=== PATIENT | male | born 1985 | race Caucasian/White ===

== ENCOUNTER 2019-01-30 15:28 | Emergency (ER) | payer OTHER ==
--- NOTE | 2019-01-30 15:34 | ED Physician Documentation ---
PD HPI DYSPNEA - Stated complaint Stated Complaint: SOA/LT ARM NUMBNESS - History obtained from History obtained from: Patient - History of Present Illness Timing - onset: Today Timing - onset during: Sleep Timing - duration: Hours (3.5) Timing - details: Abrupt onset Pain level max: 6 Pain level now: 2 Associated symptoms: Chest pain / discomfort, Palpitations, Anxiety. No: Fever, Cough, Hemoptysis, Wheezing, Bilateral edema, Unilateral edema Similar symptoms before: Has not had sx before Recently seen: Not recently seen - Additional information Additional information: Is a 33-year-old man who presents with his with complaints that he woke up at noon today with chest pain and left arm numbness breathing very shallow and feeling dizzy. He described the pain as "sharp" in the left upper pectoral region. He says he did not do anything strenuous yesterday he went to his classes which are night classes and he did not get to bed till around midnight. He took 800 mg of ibuprofen this morning without any relief. The pain was a 6 out of 10 is now down to a 2 out of 10. He is felt dizzy but has not passed out. He describes the numbness in the left arm as a tingling sensation is seems to be worse if he moves his neck to the left or to the right. Soon as he started with the symptoms he became extremely nervous about the fact that sounds like a heart attack symptoms that he is familiar with with training in some medical classes. 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 He feels a little bit like his heart is racing right now. Denies any injury to his neck. He is not a smoker, occasionally drinks alcohol. Family history Father has diabetes but both mother and father alive with no history of heart disease. An aunt had pulmonary hypertension his grandmother has diabetes. Review of Systems Constitutional: denies: Fever, Fatigue Eyes: reports: Other (He has some photosensitivity due to radial keratotomy about 6 months ago) Nose: denies: Congestion Throat: denies: Sore throat Cardiac: reports: Chest pain / pressure, Palpitations. denies: Pedal edema Respiratory: reports: Dyspnea. denies: Cough GI: denies: Nausea, Vomiting, Diarrhea : denies: Dysuria, Frequency Skin: denies: Rash Musculoskeletal: denies: Neck pain, Extremity pain Neurologic: reports: Other (Paresthesias to the left arm). denies: Generalized weakness Endocrine: reports: Other (No history of diabetes) PD PAST MEDICAL HISTORY - Present Medications Home Medications: Ambulatory Orders Medication Instructions Recorded Confirmed No Known Home Medications 01/30/19 01/30/19 - Allergies Allergies/Adverse Reactions: Allergies Allergy/AdvReac Type Severity Reaction Status Date / Time No Known Drug Allergies Allergy Verified 01/30/19 15:41 PD ED PE NORMAL - Vitals Vital signs reviewed: Yes - General General: Alert and oriented X 3, No acute distress, Well developed/nourished, Other (Patient appears very anxious. He is mildly diaphoretic and he is actually visibly shaking.) - HEENT HEENT: Atraumatic, PERRL, EOMI, Moist mucous membranes, Pharynx benign - Neck Neck: Supple, no meningeal sign, No adenopathy, No JVD, No bruit - Cardiac Cardiac: RRR, No murmur - Respiratory Respiratory: No respiratory distress, Clear bilaterally - Abdomen Abdomen: Normal bowel sounds, Soft, Non tender - Derm Derm: Normal color, No rash, Other (He is mildly diaphoretic) - Extremities Extremities: No edema, Other (Complained of pain in the left anterior chest and anterior shoulder with muscle testing in the left arm.) - Neuro Neuro: Alert and oriented X 3, chemic mangler 2-12 intact, No motor deficit, No sensory deficit, Normal speech, Other (5 out of 5 director motion picture strength in the upper extremities bilaterally 5 out of 5 biceps. Sensation is intact to light touch through the upper extremities bilaterally.) Results - Vitals Vitals: Oxygen O2 Source Room air - EKG (time done) 1531 Rate: Rate (enter#) Rhythm: NSR Intervals: Normal MN Ischemia: Non specific changes (There is noted MN depression in lead II. Minimal ST elevation in lead I, V2 V3. There is MN depression in lead V4. These changes are of unclear significance.) Compare to prior EKG: Old EKG unavailable Computer interpretation: Disagree with computer (The computer read this is atrial fibrillation but there are clear P waves.) - Labs Labs: Laboratory Tests 01/30/19 01/30/19 01/30/19 16:20 16:20 16:20 WBC 7.1 RBC 5.62 Hgb 17.3 Hct 50.7 MCV 90.1 MCH 30.8 MCHC 34.2 RDW 13.1 Plt Count 307 MPV 8.1 Neut # (Auto) 4.3 Lymph # (Auto) 2.2 [place] # (Auto) 0.4 Eos # (Auto) 0.1 Baso # (Auto) 0.0 Absolute Nucleated RBC 0.00 Nucleated RBC % 0.0 Sodium 138 Potassium 4.1 Chloride 102 Carbon Dioxide 25 Anion Gap 11.0 BUN 13 Creatinine 0.9 Estimated GFR (MDRD) 97 Glucose 90 Calcium 9.9 Total Bilirubin 0.8 AST 21 ALT 45 Alkaline Phosphatase 92 Troponin I < 0.04 Total Protein 8.2 Albumin 4.6 Globulin 3.6 Albumin/Globulin Ratio 1.3 Lipase 45 01/30/19 19:20 WBC RBC Hgb Hct MCV MCH MCHC RDW Plt Count MPV Neut # (Auto) Lymph # (Auto) [place] # (Auto) Eos # (Auto) Baso # (Auto) Absolute Nucleated RBC Nucleated RBC % Sodium Potassium Chloride Carbon Dioxide Anion Gap BUN Creatinine Estimated GFR (MDRD) Glucose Calcium Total Bilirubin AST ALT Alkaline Phosphatase Troponin I < 0.04 Total Protein Albumin Globulin Albumin/Globulin Ratio Lipase PD MEDICAL DECISION MAKING - ED course Complexity details: re-evaluated patient, d/w patient, d/w family ED course: EKG does not have acute changes. Chest x-ray is negative. He had 2 negative troponins. Patient's results were discussed with him and he was reassured[place] Departure - Departure Disposition: 01 Home, Self Care Clinical Impression: Atypical chest pain Condition: Good Instructions: ED Chest Pain Atypical Unkn Cause Follow-Up: MARIBELL Orr [Provider Group] Comments[place] symptoms persist for further evaluation. Return if the pain returns and is associated with dizziness, nausea or vomiting or other problems arise. Discharge Date/Time: 01/30/19 20:07
[2019-01-30] MEDS ORDERED: ASPIRIN CHEW 81 MG TABLET PO STA (15:51)
[2019-01-30] MEDS ORDERED: LORazepam 0.5 MG TABLET PO STA (15:52)
[2019-01-30 16:28] LABS: BASOPHILS % (AUTO) 0.4 %; EOSINOPHILS # (AUTO) 0.1 10^3/uL (0.0-0.7); EOSINOPHILS % (AUTO) 1.9 %; HGB - HEMOGLOBIN 17.3 g/dL (14.0-18.0); LYMPHOCYTES # (AUTO) 2.2 10^3/uL (1.5-3.5); LYMPHOCYTES % (AUTO) 30.7 %; MEAN CORPUSCULAR HEMOGLOBIN 30.8 pg (27.0-31.0); MEAN CORPUSCULAR HGB CONC 34.2 g/dL (32.0-36.0); MEAN CORPUSCULAR VOLUME 90.1 fL (80.0-94.0); MEAN PLATELET VOLUME 8.1 fL (7.4-11.4); MONOCYTES # (AUTO) 0.4 10^3/uL (0.0-1.0); MONOCYTES % (AUTO) 6.2 %; NEUTROPHILS # (AUTO) 4.3 10^3/uL (1.5-6.6); NEUTROPHILS % (AUTO) 60.8 %; PLT - PLATELET COUNT 307 10^3/uL (130-450); RED BLOOD COUNT 5.62 10^6/uL (4.70-6.10); RED CELL DISTRIBUTION WIDTH 13.1 % (12.0-15.0); WHITE BLOOD COUNT 7.1 x10^3/uL (4.8-10.8)
--- NOTE | 2019-01-30 16:36 | XRAY Report ---
Reason: chest pain Procedure Date: 01/30/2019 Accession Number: [id number] / [id number] Procedure: XR - Chest 1 View X-Ray CPT Code: 63496 FULL RESULT: EXAM: CHEST RADIOGRAPHY EXAM DATE: 01/30/2019 04:13 PM. CLINICAL HISTORY: Chest pain. Chills. COMPARISON: None. TECHNIQUE: 1 view. FINDINGS: Lungs/Pleura: No focal opacities evident. No pleural effusion. No pneumothorax. Mediastinum: Within exam limitations, the cardiomediastinal contour is normal. Other: No bony abnormality identified. IMPRESSION: Normal single view chest. RADIA
[2019-01-30 16:46] LABS: ALBUMIN 4.6 g/dL (3.2-5.5); ALBUMIN/GLOBULIN RATIO 1.3 (1.0-2.2); BILIRUBIN,TOTAL 0.8 mg/dL (0.2-1.0); CALCIUM 9.9 mg/dL (8.5-10.3); CREATININE 0.9 mg/dL (0.6-1.2); TOTAL PROTEIN 8.2 g/dL (6.7-8.2)
[2019-01-30 20:07] VITALS: BP 106/82
== END 2019-01-30 20:07 | disposition home or self-care (01) ==
LOC: ED 15:28
DX: R07.89 Other chest pain (principal)
CPT/HCPCS: 36415; 71045; 80053; 83690; 84484; 85025; 93005; 99283; 99284; A9270

== ENCOUNTER 2020-05-23 01:34 | Emergency (ER) | payer OTHER ==
--- NOTE | 2020-05-23 01:42 | ED Physician Documentation ---
PD HPI CHEST PAIN - Stated complaint Stated Complaint: CP - History obtained from History obtained from: Patient - History of Present Illness Timing - onset: How many days ago (1 (episodic for past 24 hours)) Timing - details: Intermittant Pain level now: 5 Quality: Pain Location: Substernal Radiation: Other (chest pressure with LUE numbness) Improved by: Nothing Worsened by: Other (no exacerbating factors) Similar symptoms before: No diagnosis (similar symptoms January 2019 (T+R from this ED and followed up with PMD, no diagnosis)) Recently seen: Not recently seen - Additional information Additional information: c/o episodic chest pressure over past 24 hours with LUE numbness, dyspnea, and mid/lower back pain. No inciting, exacerbating, or ameliorating factors Review of Systems Constitutional: denies: Fever, Chills, Sweats Cardiac: reports: Chest pain / pressure. denies: Palpitations, Pedal edema, Ca lf pain Respiratory: reports: Dyspnea (only when having chest pressure). denies: Cough, Wheezing GI: reports: Reviewed and negative : denies: Dysuria, Frequency, Hematuria Musculoskeletal: reports: Back pain PD PAST MEDICAL HISTORY - Past Medical History Past Medical History: No - Past Surgical History Past Surgical History: No - Present Medications Home Medications: Ambulatory Orders Medication Instructions Recorded Confirmed No Known Home Medications 01/30/19 05/23/20 - Allergies Allergies/Adverse Reactions: Allergies Allergy/AdvReac Type Severity Reaction Status Date / Time No Known Drug Allergies Allergy Verified 05/23/20 01:46 - Living Situation Living Arrangement: reports: At home - Social History Does the pt smoke?: No Smoking Status: Never smoker Does the pt drink ETOH?: Yes Does the pt have substance abuse?: No - Immunizations Immunizations are current?: Yes - POLST Patient has POLST: No PD ED PE NORMAL - Vitals Vital signs reviewed: Yes - General General: Alert and oriented X 3, No acute distress, Well developed/nourished - HEENT HEENT: Moist mucous membranes - Neck Neck: Supple, no meningeal sign - Cardiac Cardiac: RRR, No murmur, No gallop, No rub - Respiratory Respiratory: No respiratory distress, Clear bilaterally - Abdomen Abdomen: Soft, Non tender - Back Back: No CVA TTP - Extremities Extremities: No edema Results - Vitals Vitals: Vital Signs - 24 hr 05/23/20 05/23/20 05/23/20 01:42 01:46 02:55 Temperature 36.3 C L 36.3 C L 36.8 C Heart Rate 61 61 61 Respiratory 16 16 16 Rate Blood Pressure 130/91 H 130/91 H 117/75 O2 Saturation 100 100 98 Oxygen O2 Source Room air - EKG (time done) No standard instances Rate: Rate (enter#) (60) Rhythm: NSR [place]: Normal Intervals: Normal IN QRS: Normal Ischemia: Normal ST segments - Labs Labs: Laboratory Tests 05/23/20 05/23/20 05/23/20 01:45 01:45 01:45 WBC 9.1 RBC 5.03 Hgb 15.8 Hct 45.7 MCV 90.9 MCH 31.4 H MCHC 34.6 RDW 12.6 Plt Count 319 MPV 9.8 Neut # (Auto) 5.1 Lymph # (Auto) 3.1 [place] # (Auto) 0.6 Eos # (Auto) 0.2 Baso # (Auto) 0.0 Absolute Nucleated RBC 0.00 Nucleated RBC % 0.0 Sodium 137 Potassium 3.6 Chloride 103 Carbon Dioxide 26 Anion Gap 8.0 BUN 13 Creatinine 1.0 Estimated GFR (MDRD) 85 L Glucose 96 Calcium 9.5 Total Bilirubin 0.9 AST 23 ALT 30 Alkaline Phosphatase 93 Troponin I High Sens 2.9 Total Protein 7.7 Albumin 4.8 Globulin 2.9 Albumin/Globulin Ratio 1.7 Lipase 50 - Rads (name of study) chest xray Radiology: Prelim report reviewed, See rad report PD MEDICAL DECISION MAKING - ED course Complexity details: reviewed results, re-evaluated patient, considered differential, d/w patient Departure - Departure Disposition: 01 Home, Self Care Clinical Impression: Chest pain Qualifiers: Chest pain type: unspecified Qualified Code(s): R07.9 - Chest pain, unspecified Condition: Good Instructions: ED Chest Pain Atypical Unkn Cause Follow-Up: ALBINO TRUJILLO MD [Primary Care Provider] - Discharge Date/Time: 05/23/20 02:55
[2020-05-23 01:53] LABS: BASOPHILS % (AUTO) 0.3 %; EOSINOPHILS # (AUTO) 0.2 10^3/uL (0.0-0.7); HGB - HEMOGLOBIN 15.8 g/dL (14.0-18.0); LYMPHOCYTES # (AUTO) 3.1 10^3/uL (1.5-3.5); LYMPHOCYTES % (AUTO) 34.5 %; MEAN CORPUSCULAR HEMOGLOBIN 31.4 pg (27.0-31.0); MEAN CORPUSCULAR HGB CONC 34.6 g/dL (32.0-36.0); MEAN CORPUSCULAR VOLUME 90.9 fL (80.0-94.0); MEAN PLATELET VOLUME 9.8 fL (7.4-11.4); MONOCYTES # (AUTO) 0.6 10^3/uL (0.0-1.0); MONOCYTES % (AUTO) 6.8 %; NEUTROPHILS # (AUTO) 5.1 10^3/uL (1.5-6.6); NEUTROPHILS % (AUTO) 56.1 %; PLT - PLATELET COUNT 319 10^3/uL (130-450); RED BLOOD COUNT 5.03 10^6/uL (4.70-6.10); RED CELL DISTRIBUTION WIDTH 12.6 % (12.0-15.0); WHITE BLOOD COUNT 9.1 x10^3/uL (4.8-10.8)
[2020-05-23 02:06] LABS: ALBUMIN 4.8 g/dL (3.2-5.5); ALBUMIN/GLOBULIN RATIO 1.7 (1.0-2.2); BILIRUBIN,TOTAL 0.9 mg/dL (0.2-1.0); CALCIUM 9.5 mg/dL (8.5-10.3); TOTAL PROTEIN 7.7 g/dL (6.7-8.2)
[2020-05-23 02:56] VITALS: BP 117/75
--- NOTE | 2020-05-23 08:26 | XRAY Report ---
PROCEDURE: Chest 2 View X-Ray INDICATIONS: chest pain TECHNIQUE: 2 view(s) of the chest. COMPARISON: 01/30/2019. FINDINGS: Surgical changes and devices: None. Lungs and pleura: No pleural effusions or pneumothorax. Lungs are clear. Mediastinum: Mediastinal contours are normal. Heart size is normal. Bones and chest wall: No suspicious bony abnormalities. Soft tissues appear unremarkable. IMPRESSION: No acute cardiopulmonary disease process. Reviewed by: Obdulia Bell MD, PhD on 05/23/2020 8:25 AM PDT Approved by: Obdulia Bell MD, PhD on 05/23/2020 8:25 AM PDT Station ID: [id number]
== END 2020-05-23 02:55 | disposition home or self-care (01) ==
LOC: ED 01:34
DX: R07.89 Other chest pain (principal)
CPT/HCPCS: 36415; 71046; 80053; 83690; 84484; 85025; 93005; 99284

== ENCOUNTER 2021-07-26 05:03 | Emergency (ER) | payer OTHER ==
[2021-07-26] MEDS: SODIUM CHLORIDE 0.9% 1,000 ML IV STA (05:22)
--- NOTE | 2021-07-26 05:27 | ED Physician Documentation ---
PD HPI ABD PAIN - Stated complaint Stated Complaint: LOWER QUAD PX/N/V - Chief complaint Chief Complaint: Abd Pain - History obtained from History obtained from: Patient - History of Present Illness Timing - onset: How many hours ago (1) Timing - duration: Hours (1) Timing - details: Abrupt onset Quality: Aching, Stabbing, Pain Location: RUQ Radiation: Right flank Improved by: No: Eating, Laying still Worsened by: No: Eating, Moving, Breathing Associated symptoms: Nausea, Vomiting (once with the pain). No: Fever, Diarrhea, Constipation, Dysuria, Chest pain Similar symptoms before: Diagnosis (similar character and location of pain about 5 years ago due to kidney stone that did spontaneously pass without surgical procedures.) Recently seen: Not recently seen Review of Systems Constitutional: denies: Fever, Chills Nose: denies: Rhinorrhea / runny nose, Congestion Throat: denies: Sore throat Respiratory: denies: Cough GI: reports: Abdominal Pain, Nausea. denies: Constipation, Diarrhea : reports: Hematuria (mild after onset of the pain). denies: Dysuria, Frequency, Discharge Neurologic: denies: Generalized weakness, Near syncope PD PAST MEDICAL HISTORY - Past Medical History Cardiovascular: None Respiratory: None Endocrine/Autoimmune: None : Kidney stones (once about 5 years ago) - Past Surgical History Past Surgical History: No - Present Medications Home Medications: Ambulatory Orders Medication Instructions Recorded Confirmed No Known Home Medications 01/30/19 07/26/21 - Allergies Allergies/Adverse Reactions: Allergies Allergy/AdvReac Type Severity Reaction Status Date / Time No Known Drug Allergies Allergy Verified 05/23/20 01:46 - Social History Does the pt smoke?: No Smoking Status: Never smoker Does the pt drink ETOH?: Yes Does the pt have substance abuse?: No - Immunizations Immunizations are current?: Yes - POLST Patient has POLST: No PD ED PE NORMAL - Vitals Vital signs reviewed: Yes - General General: Alert and oriented X 3, Well developed/nourished, Other (appears in significant pain) - Neck Neck: Supple, no meningeal sign - Cardiac Cardiac: RRR, No murmur - Respiratory Respiratory: Clear bilaterally - Abdomen Abdomen: Normal bowel sounds, Soft, Non distended, No organomegaly, Other (palpation does not worsen the pain) - Derm Derm: Normal color, Warm and dry - Neuro Neuro: Alert and oriented X 3, No motor deficit, Normal speech Results - Vitals Vitals: Vital Signs - 24 hr 07/26/21 07/26/21 07/26/21 05:07 05:50 06:15 Temperature 36.5 C Heart Rate 67 64 58 L Respiratory 18 16 16 Rate Blood Pressure 126/69 117/79 118/75 O2 Saturation 98 100 100 Oxygen O2 Source Room air - Labs Labs: Laboratory Tests 07/26/21 07/26/21 07/26/21 05:20 05:20 06:45 WBC 5.5 RBC 4.76 Hgb 14.9 Hct 43.6 MCV 91.6 MCH 31.3 H MCHC 34.2 RDW 12.5 Plt Count 287 MPV 9.5 Neut # (Auto) 3.2 Lymph # (Auto) 1.8 [place] # (Auto) 0.4 Eos # (Auto) 0.1 Baso # (Auto) 0.0 Absolute Nucleated RBC 0.00 Nucleated RBC % 0.0 Sodium 137 Potassium 3.9 Chloride 105 Carbon Dioxide 23 Anion Gap 9.0 BUN 15 Creatinine 1.0 Estimated GFR (MDRD) 84 L Glucose 105 H Calcium 9.2 Total Bilirubin 0.8 AST 20 ALT 33 Alkaline Phosphatase 66 Total Protein 7.1 Albumin 3.9 Globulin 3.2 Albumin/Globulin Ratio 1.2 Lipase 41 Urine Color YELLOW Urine Clarity CLEAR Urine pH 7.0 Ur Specific [place] 1.020 Urine Protein NEGATIVE Urine Glucose (UA) NEGATIVE Urine Ketones NEGATIVE Urine Occult Blood LARGE H Urine Nitrite NEGATIVE Urine Bilirubin NEGATIVE Urine Urobilinogen 0.2 (NORMAL) Ur Leukocyte Esterase NEGATIVE Urine RBC TNTC H Urine WBC 0-3 Ur Squamous Epith Cells RARE Squamous Urine Bacteria Rare Urine Mucus Few Strands Ur Microscopic Review INDICATED Urine Culture Comments NOT INDICATED - Rads (name of study) KUB CT Radiology: Prelim report reviewed (mild hydroureter and perinephric stranding right. 3 mm stone in the bladder.), See rad report PD MEDICAL DECISION MAKING - ED course Complexity details: reviewed results, re-evaluated patient (feeling considerably improved after IV meds. ), considered differential (seems likely kidney stone. Prior episode 5 years ago. Pain is largely in flank without any lower abd pain, so stone likely still upper ureter. Can get CT to better evaluate after pain meds. ), d/w patient Departure - Departure Disposition: 01 Home, Self Care Clinical Impression: Right sided abdominal pain, Ureterolithiasis Condition: Stable Record reviewed to determine appropriate education?: Yes Instructions: ED Stone Renal Passed Comments: Does appear that your kidney stone is passed and is visible now in the bladder. They can be some "after shock" pains of spasm in the ureter and passing of some blood that can persist for a day or so. Tylenol ibuprofen and stay well- hydrated as needed. I would not anticipate needing stronger medications at this point but Tylenol or ibuprofen combination should do. Follow-up or return if not completely resolved over the next 2 to 3 days. Your urine does not show signs of infection. The radiology report does not see any other abnormalities.
[2021-07-26] MEDS: ONDANSETRON 4 MG/2 ML VIAL IVP STA (05:39)
[2021-07-26] MEDS: KETOROLAC 30 MG/ML VIAL IVP STA (05:40)
[2021-07-26 05:42] LABS: BASOPHILS % (AUTO) 0.6 %; EOSINOPHILS # (AUTO) 0.1 10^3/uL (0.0-0.7); EOSINOPHILS % (AUTO) 2.2 %; HCT - HEMATOCRIT 43.6 % (42.0-52.0); HGB - HEMOGLOBIN 14.9 g/dL (14.0-18.0); LYMPHOCYTES # (AUTO) 1.8 10^3/uL (1.5-3.5); LYMPHOCYTES % (AUTO) 32.7 %; MEAN CORPUSCULAR HEMOGLOBIN 31.3 pg (27.0-31.0); MEAN CORPUSCULAR HGB CONC 34.2 g/dL (32.0-36.0); MEAN CORPUSCULAR VOLUME 91.6 fL (80.0-94.0); MEAN PLATELET VOLUME 9.5 fL (7.4-11.4); MONOCYTES # (AUTO) 0.4 10^3/uL (0.0-1.0); MONOCYTES % (AUTO) 6.4 %; NEUTROPHILS # (AUTO) 3.2 10^3/uL (1.5-6.6); NEUTROPHILS % (AUTO) 57.9 %; PLT - PLATELET COUNT 287 10^3/uL (130-450); RED BLOOD COUNT 4.76 10^6/uL (4.70-6.10); RED CELL DISTRIBUTION WIDTH 12.5 % (12.0-15.0); WHITE BLOOD COUNT 5.5 x10^3/uL (4.8-10.8)
[2021-07-26] MEDS: HYDROmorphone 1 MG/ML CARPUJECT IVP STA (05:42)
[2021-07-26 06:01] LABS: ALBUMIN 3.9 g/dL (3.2-5.5); ALBUMIN/GLOBULIN RATIO 1.2 (1.0-2.2); BILIRUBIN,TOTAL 0.8 mg/dL (0.2-1.0); CALCIUM 9.2 mg/dL (8.5-10.3); POTASSIUM 3.9 mmol/L (3.5-5.0); TOTAL PROTEIN 7.1 g/dL (6.7-8.2)
[2021-07-26] MEDS ORDERED: LIDOCAINE-MPF 2% 5 ML VIAL ONE ×2 (06:08→06:17)
[2021-07-26] MEDS: LIDOCAINE-MPF 2% 6 ML in SODIUM CHLORIDE 0.9% 50 ML IV STA (06:13)
[2021-07-26 06:55] LABS: BILIRUBIN,URINE NEGATIVE (NEGATIVE); GLUCOSE, URINE (UA) NEGATIVE (NEGATIVE); KETONES,URINE (UA) NEGATIVE (NEGATIVE); LEUKOCYTE ESTERASE, URINE NEGATIVE (NEGATIVE); NITRITE,URINE NEGATIVE (NEGATIVE); OCCULT BLOOD,URINE LARGE (NEGATIVE); PROTEIN,URINE NEGATIVE (NEGATIVE); UROBILINOGEN,URINE 0.2 (NORMAL) E.U./dL (NORMAL)
[2021-07-26 07:11] LABS: BACTERIA,URINE Rare /HPF (None Seen); CLARITY,URINE CLEAR (CLEAR); MUCUS,URINE Few Strands; RBC,URINE TNTC /HPF (0-5); SQUAMOUS EPITHELIAL CELL,UR RARE Squamous (<= Few); WBC,URINE 0-3 /HPF (0-3)
[2021-07-26 08:03] VITALS: BP 105/75
--- NOTE | 2021-07-26 09:25 | CT Report ---
PROCEDURE: Abdomen/Pelvis WO INDICATIONS: right flank to abd pain, likely stone TECHNIQUE: Noncontrast 5 mm thick sections acquired from the diaphragms to the symphysis. 5 mm coronal and sagi ttal reformats were then performed. For radiation dose reduction, the following was used: automated exposure control, adjustment of mA and/or kV according to patient size. COMPARISON: None. FINDINGS: Image quality: Excellent. ABDOMEN: Lung bases: Lung bases are clear. Heart size is normal. Solid organs: Liver and spleen are normal in size. Gallbladder wall does not appear thickened. P ancreas is normal in contours. No adrenal nodules. Kidneys are normal in size, without hydronephros is or nephrolithiasis. Peritoneum and bowel: Unenhanced bowel loops demonstrate normal wall thickness and caliber. No free fluid or air. A normal appendix is incidentally noted. Nodes and vessels: No retroperitoneal or mesenteric adenopathy by size criteria. Aorta and inferior vena cava are normal in caliber. Miscellaneous: No ventral hernias. PELVIS: Genitourinary: Bladder wall thickness is normal. There is a 3 mm nonobstructing stone seen layering dependently within the urinary bladder, as on series 3 image 131. Miscellaneous: No inguinal hernias or adenopathy. Bones: No suspicious bony lesions. No acute vertebral body compression fractures. There is a remot e L2 anterior wedge deformity, with approximately 30% loss of height anteriorly. IMPRESSION: There is a 3 mm stone seen layering dependently within the bladder. Given the history, p lease consider a recently passed stone. Negative for additional stones or obstructive uropathy. Normal appendix. Incidental note is made of: Remote L2 anterior wedge deformity Note: No significant discrepancy from the preliminary report. Reviewed by: Modesto Hurd MD on 07/26/2021 8:24 AM [facility] Approved by: Modesto Hurd MD on 07/26/2021 8:24 AM [facility] Station ID: [id number]
== END 2021-07-26 08:26 | disposition home or self-care (01) ==
LOC: ED 05:03
DX: N20.1 Calculus of ureter (principal); Z87.442 Personal history of urinary calculi
CPT/HCPCS: 36415; 74176; 80053; 81001; 83690; 85025; 96361; 96374; 96375; 99282; 99284; J1170; J7040; 81003; 87086

== ENCOUNTER 2021-11-13 02:13 | Emergency (ER) | payer OTHER ==
[2021-11-13 03:04] LABS: BASOPHILS # (AUTO) 0.1 10^3/uL (0.0-0.1); BASOPHILS % (AUTO) 0.8 %; EOSINOPHILS # (AUTO) 0.2 10^3/uL (0.0-0.7); EOSINOPHILS % (AUTO) 2.9 %; HCT - HEMATOCRIT 42.9 % (42.0-52.0); HGB - HEMOGLOBIN 14.7 g/dL (14.0-18.0); LYMPHOCYTES # (AUTO) 2.9 10^3/uL (1.5-3.5); LYMPHOCYTES % (AUTO) 43.8 %; MEAN CORPUSCULAR HEMOGLOBIN 30.9 pg (27.0-31.0); MEAN CORPUSCULAR HGB CONC 34.3 g/dL (32.0-36.0); MEAN CORPUSCULAR VOLUME 90.1 fL (80.0-94.0); MEAN PLATELET VOLUME 9.5 fL (7.4-11.4); MONOCYTES # (AUTO) 0.6 10^3/uL (0.0-1.0); MONOCYTES % (AUTO) 9.1 %; NEUTROPHILS # (AUTO) 2.8 10^3/uL (1.5-6.6); NEUTROPHILS % (AUTO) 43.2 %; PLT - PLATELET COUNT 295 10^3/uL (130-450); RED BLOOD COUNT 4.76 10^6/uL (4.70-6.10); WHITE BLOOD COUNT 6.5 x10^3/uL (4.8-10.8)
[2021-11-13 03:18] LABS: ALBUMIN 4.1 g/dL (3.2-5.5); ALBUMIN/GLOBULIN RATIO 1.6 (1.0-2.2); BILIRUBIN,TOTAL 0.5 mg/dL (0.2-1.0); CALCIUM 9.3 mg/dL (8.5-10.3); POTASSIUM 3.8 mmol/L (3.5-5.0); TOTAL PROTEIN 6.6 g/dL (6.7-8.2)
--- NOTE | 2021-11-13 04:24 | ED Physician Documentation ---
PD HPI CHEST PAIN - Stated complaint Stated Complaint: CHEST PX, L ARM PX - Chief complaint Chief Complaint: Cardiac - History obtained from History obtained from: Patient - Additional information Additional information: Patient presenting for evaluation of left-sided chest pain that started at 2 AM. He describes it as a tightness.[place] associated numbness in his left arm. He reports that his symptoms have been on and off since then. There is nothing that makes them better or worse. He does have a history of similar episode a few years ago at which time he was evaluated in the emergency department. He has no known coronary artery disease. Denies history of hypertension, dyslipidemia,DM, family history of early cardiac disease. At this time he is currently pain-free. He had associated nausea. He denies any recent activity that would have Triggered this pain.Patient reports that initially it felt like the pain radiated to throughout his whole body but currently denies any abdominal or back pain. Review of Systems Ten Systems: 10 systems reviewed and negative Constitutional: denies: Fever Nose: denies: Congestion Cardiac: reports: Chest pain / pressure Respiratory: denies: Dyspnea, Cough GI: reports: Nausea. denies: Abdominal Pain, Vomiting : denies: Dysuria Skin: denies: Rash Musculoskeletal: denies: Back pain Neurologic: denies: Generalized weakness, Headache PD PAST MEDICAL HISTORY - Past Medical History Past Medical History: Yes Cardiovascular: None Respiratory: None Neuro: None Endocrine/Autoimmune: None GI: None : Kidney stones HEENT: None Psych: None Musculoskeletal: None Derm: None - Past Surgical History Past Surgical History: No - Present Medications Home Medications: Ambulatory Orders Medication Instructions Recorded Confirmed No Known Home Medications 01/30/19 11/13/21 - Allergies Allergies/Adverse Reactions: Allergies Allergy/AdvReac Type Severity Reaction Status Date / Time No Known Drug Allergies Allergy Verified 11/13/21 02:28 - Social History Does the pt smoke?: No Smoking Status: Never smoker Does the pt drink ETOH?: Yes Does the pt have substance abuse?: No - Immunizations Immunizations are current?: Yes - POLST Patient has POLST: No PD ED PE NORMAL - General General: Alert and oriented X 3, No acute distress, Well developed/nourished - HEENT HEENT: Atraumatic, PERRL, EOMI, Moist mucous membranes - Neck Neck: Supple, no meningeal sign - Cardiac Cardiac: RRR, No murmur, No gallop, Strong equal pulses - Respiratory Respiratory: No respiratory distress, Clear bilaterally - Abdomen Abdomen: Normal bowel sounds, Soft, Non tender, Non distended - Back Back: No CVA TTP - Derm Derm: Normal color, Warm and dry - Extremities Extremities: No deformity, No edema, No calf tenderness / cord - Neuro Neuro: Alert and oriented X 3, 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, No motor deficit, No sensory deficit, Normal speech - Psych Psych: Normal mood, Normal affect Results - Vitals Vitals: Vital Signs - 24 hr 11/13/21 11/13/21 11/13/21 02:24 02:35 02:36 Temperature 35.9 C L Heart Rate 63 58 L 59 L Respiratory 17 16 20 Rate Blood Pressure 123/74 124/90 H 124/90 H O2 Saturation 98 98 96 11/13/21 11/13/21 11/13/21 03:06 03:40 05:03 Temperature Heart Rate 59 L 57 L 61 Respiratory 17 14 16 Rate Blood Pressure 115/77 120/84 H O2 Saturation 97 98 99 11/13/21 05:44 Temperature Heart Rate Respiratory 16 Rate Blood Pressure O2 Saturation Oxygen O2 Source Room air - EKG (time done) 0228 Rate: Rate (enter#) Rhythm: Sinus bradycardia [place]: Normal Ischemia: No: ST elevation c/w ischemia, T wave inversion Computer interpretation: Agree with computer - Labs Labs: Laboratory Tests 11/13/21 11/13/21 11/13/21 03:00 03:00 03:00 WBC 6.5 RBC 4.76 Hgb 14.7 Hct 42.9 MCV 90.1 MCH 30.9 MCHC 34.3 RDW 13.0 Plt Count 295 MPV 9.5 Neut # (Auto) 2.8 Lymph # (Auto) 2.9 [place] # (Auto) 0.6 Eos # (Auto) 0.2 Baso # (Auto) 0.1 Absolute Nucleated RBC 0.00 Nucleated RBC % 0.0 Sodium 135 Potassium 3.8 Chloride 100 L Carbon Dioxide 24 Anion Gap 11.0 BUN 13 Creatinine 1.0 Estimated GFR (MDRD) 84 L Glucose 100 Calcium 9.3 Total Bilirubin 0.5 AST 18 ALT 28 Alkaline Phosphatase 75 Troponin I High Sens 3.1 Total Protein 6.6 L Albumin 4.1 Globulin 2.5 Albumin/Globulin Ratio 1.6 11/13/21 05:02 WBC RBC Hgb Hct MCV MCH MCHC RDW Plt Count MPV Neut # (Auto) Lymph # (Auto) [place] # (Auto) Eos # (Auto) Baso # (Auto) Absolute Nucleated RBC Nucleated RBC % Sodium Potassium Chloride Carbon Dioxide Anion Gap BUN Creatinine Estimated GFR (MDRD) Glucose Calcium Total Bilirubin AST ALT Alkaline Phosphatase Troponin I High Sens 3.0 Total Protein Albumin Globulin Albumin/Globulin Ratio PD MEDICAL DECISION MAKING - ED course ED course: Patient presenting withChest pain that started this evening and has since resolved. He is low risk for ACS based on the heart score. His initial EKG is without acute ischemic changes and his troponin is negative. Plan to repeat troponin in 2 hours. His neurologic exam is normal I do not think his symptoms suggest a TIA or stroke. Doubt dissection or pulmonary embolism. Patient is currently Symptom-free While in the emergency department. Second troponin is also negative and patient remains pain-free. Reviewed results with him and encouraged close PCP follow-up. Patient is also aware of strict return precautions. Departure - Departure Disposition: 01 Home, Self Care Clinical Impression: Chest pain Qualifiers: Chest pain type: unspecified Qualified Code(s): R07.9 - Chest pain, unspecified Condition: Stable Instructions: ED Chest Pain Atypical Unkn Cause Comments: At this time the cause of your chest pain is unclear. It does not appear that you are having a heart attack today. However you should still have close follow-up with your primary care doctor. Please return to the emergency department if you develop worsening pain, pain in new location, difficulty breathing, vomiting, weakness, any concerns. Discharge Date/Time: 11/13/21 06:02
[2021-11-13 05:03] VITALS: BP 120/84
--- NOTE | 2021-11-13 10:20 | XRAY Report ---
PROCEDURE: Chest 1 View X-Ray INDICATIONS: CP TECHNIQUE: One view of the chest was acquired. COMPARISON: Chest x-ray 05/23/2020 FINDINGS: Surgical changes and devices: None. Lungs and pleura: No pleural effusions or pneumothorax. Lungs are clear. Mediastinum: Mediastinal contours appear normal. Heart size is normal. Bones and chest wall: No suspicious bony lesions. Overlying soft tissues appear unremarkable. IMPRESSION: No acute pulmonary process. The above findings are concordant with preliminary report. Reviewed by: Ofelia Jolley MD on 11/13/2021 10:19 AM PDT Approved by: Ofelia Jolley MD on 11/13/2021 10:19 AM PDT Station ID: [id number]
== END 2021-11-13 06:02 | disposition home or self-care (01) ==
LOC: ED 02:13
DX: R07.9 Chest pain, unspecified (principal)
CPT/HCPCS: 36415; 80053; 84484; 85025; 93005; 99282; 99284

== ENCOUNTER 2022-09-16 15:14 | Emergency (ER) | payer OTHER ==
[2022-09-16 15:35] LABS: BASOPHILS # (AUTO) 0.1 10^3/uL (0.0-0.1); BASOPHILS % (AUTO) 0.6 %; EOSINOPHILS # (AUTO) 0.2 10^3/uL (0.0-0.7); EOSINOPHILS % (AUTO) 2.4 %; HCT - HEMATOCRIT 47.2 % (42.0-52.0); LYMPHOCYTES # (AUTO) 2.6 10^3/uL (1.5-3.5); MEAN CORPUSCULAR HEMOGLOBIN 30.1 pg (27.0-31.0); MEAN CORPUSCULAR HGB CONC 33.9 g/dL (32.0-36.0); MEAN CORPUSCULAR VOLUME 88.7 fL (80.0-94.0); MEAN PLATELET VOLUME 9.6 fL (7.4-11.4); MONOCYTES # (AUTO) 0.6 10^3/uL (0.0-1.0); NEUTROPHILS % (AUTO) 58.6 %; PLT - PLATELET COUNT 326 10^3/uL (130-450); RED BLOOD COUNT 5.32 10^6/uL (4.70-6.10); RED CELL DISTRIBUTION WIDTH 12.9 % (12.0-15.0); WHITE BLOOD COUNT 8.5 x10^3/uL (4.8-10.8)
--- NOTE | 2022-09-16 15:36 | ED Physician Documentation ---
PD HPI CHEST PAIN - Stated complaint Stated Complaint: SOA/LT ARM NUMBNESS - Chief complaint Chief Complaint: Cardiac - History obtained from History obtained from: Patient, Family - History of Present Illness Timing - onset: How many hours ago (12) Timing - onset during: Rest Timing - duration: Hours (12) Timing - details: Gradual onset, Constant Quality: Pressure Location: Left chest Radiation: No: Jaw, Neck, Back, Abdominal, Left upper extremity, Right upper extremity Improved by: Nothing. No: Rest, Oxygen, ASA, Antacids Worsened by: No: Exertion, Inspiration, Eating, Movement, Palpation Associated symptoms: No: Shortness of air, Diaphoresis, Nausea, Vomiting, Feeling faint / dizzy, General Weakness, Palpitations, Cough Recently seen: Not recently seen - Additional information Additional information: Patient is a 37-year-old male who presents to the emergency department with 12 hours of constant left-sided chest pressure. He states his left arm is numb and tingling. He states that a similar episode occurred about a year ago, resolved on its own. ED work-up at that time was negative. He then saw a ball fringe machine operator and had a negative cardiac stress test. He states that nothing makes the pressure better or worse. He took aspirin today without relief. No fevers. No chills. No cough. No congestion. No recent illness or trauma. No history of young cardiac disease in the family. Patient does not take any other medications at home. He states he does not smoke or use any drugs. Review of Systems Constitutional: denies: Fever, Chills Nose: denies: Rhinorrhea / runny nose, Congestion Cardiac: denies: Chest pain / pressure Respiratory: denies: Dyspnea, Cough GI: denies: Abdominal Pain, Nausea, Vomiting, Diarrhea Skin: denies: Rash Musculoskeletal: denies: Neck pain, Back pain Neurologic: denies: Headache PD PAST MEDICAL HISTORY - Past Medical History Cardiovascular: None Respiratory: None Neuro: None Endocrine/Autoimmune: None GI: None : Kidney stones HEENT: None Psych: None Musculoskeletal: None Derm: None - Past Surgical History Past Surgical History: No - Present Medications Home Medications: Ambulatory Orders Medication Instructions Recorded Confirmed No Known Home Medications 01/30/19 11/13/21 - Allergies Allergies/Adverse Reactions: Allergies Allergy/AdvReac Type Severity Reaction Status Date / Time No Known Drug Allergies Allergy Verified 09/16/22 15:21 - Social History Does the pt smoke?: No Smoking Status: Never smoker Does the pt drink ETOH?: Yes Does the pt have substance abuse?: No - Immunizations Immunizations are current?: Yes - POLST Patient has POLST: No PD ED PE NORMAL - Vitals Vital signs reviewed: Yes - General General: Alert and oriented X 3, No acute distress - HEENT HEENT: Moist mucous membranes - Neck Neck: Supple, no meningeal sign - Cardiac Cardiac: RRR, Strong equal pulses - Respiratory Respiratory: No respiratory distress, Clear bilaterally - Abdomen Abdomen: Soft, Non tender, Non distended - Back Back: No CVA TTP, No spinal TTP - Derm Derm: Warm and dry - Extremities Extremities: No edema - Neuro Neuro: Alert and oriented X 3 - Psych Psych: Normal mood, Normal affect Results - Vitals Vitals: Vital Signs - 24 hr 09/16/22 09/16/22 09/16/22 15:18 15:21 15:51 Temperature 36.4 C L 36.5 C Heart Rate 67 67 64 Respiratory 16 16 16 Rate Blood Pressure 138/81 H 138/81 H 133/95 H O2 Saturation 96 96 97 09/16/22 09/16/22 16:57 17:00 Temperature Heart Rate 62 66 Respiratory 18 16 Rate Blood Pressure 132/81 H 133/96 H O2 Saturation 98 97 Oxygen O2 Source Room air - EKG (time done) 1528 Rate: Rate (enter#) (64) Rhythm: NSR [place]: Normal Intervals: Normal MS QRS: Normal Ischemia: Normal ST segments - Labs Labs: Laboratory Tests 09/16/22 09/16/22 09/16/22 15:28 15:28 15:28 WBC 8.5 RBC 5.32 Hgb 16.0 Hct 47.2 MCV 88.7 MCH 30.1 MCHC 33.9 RDW 12.9 Plt Count 326 MPV 9.6 Neut # (Auto) 5.0 Lymph # (Auto) 2.6 [place] # (Auto) 0.6 Eos # (Auto) 0.2 Baso # (Auto) 0.1 Absolute Nucleated RBC 0.00 Nucleated RBC % 0.0 Sodium 138 Potassium 3.6 Chloride 100 L Carbon Dioxide 30 Anion Gap 8.0 BUN 9 Creatinine 1.0 Estimated GFR (MDRD) 84 L Glucose 106 H Calcium 9.8 Total Bilirubin 0.8 AST 21 ALT 31 Alkaline Phosphatase 88 Troponin I High Sens 2.8 Total Protein 7.5 Albumin 4.3 Globulin 3.2 Albumin/Globulin Ratio 1.3 Lipase 51 - Rads (name of study) cxr Radiology: Final report received, See rad report PD Medical Decision Making - ED course Complexity details: reviewed results, re-evaluated patient, considered differential (No ST elevation [place], no aortic dissection, no PE, no tension pneumothorax, no aortic aneurysm), d/w patient Reviewed Lab Results: No acute findings on CBC, CMP. Negative high-sensitivity troponin after greater than 12 hours of pain. Negative chest x-ray ED course: Unclear etiology of the patient's pain. Resolved with Toradol. He had a negative stress test this last year as well. No evidence of acute coronary syndrome. No risk factors for PE. Asymptomatic after the Toradol. We will have him follow-up with his doctor for further care. Patient counseled regarding signs and symptoms for which I believe and urgent re-evaluation would be necessary. Patient with good understanding of and agreement to plan and is comfortable going home at this time This document was made in part using voice recognition software. While efforts are made to proofread this document, sound alike and grammatical errors may occur. Departure - Departure Disposition: 01 Home, Self Care Clinical Impression: Chest pain Qualifiers: Chest pain type: unspecified Qualified Code(s): R07.9 - Chest pain, unspecified Condition: Good Instructions: ED Chest Pain NonCardiac Follow-Up: Rex Lynn [Primary Care Provider] - Within 1 week Comments: Your testing tonight is normal. There is no evidence of heart attack, collapsed lung, blood clot in the lung or other serious cause tonight. Please follow up with your doctor for further care. Discharge Date/Time: 09/16/22 17:15
[2022-09-16 15:49] LABS: ALBUMIN 4.3 g/dL (3.2-5.5); ALBUMIN/GLOBULIN RATIO 1.3 (1.0-2.2); BILIRUBIN,TOTAL 0.8 mg/dL (0.2-1.0); CALCIUM 9.8 mg/dL (8.5-10.3); POTASSIUM 3.6 mmol/L (3.5-5.0); TOTAL PROTEIN 7.5 g/dL (6.7-8.2)
--- NOTE | 2022-09-16 15:57 | XRAY Report ---
PROCEDURE: Chest 1 View X-Ray INDICATIONS: Chest pain TECHNIQUE: One view of the chest was acquired. COMPARISON: None. FINDINGS: Surgical changes and devices: None. Lungs and pleura: No pleural effusions or pneumothorax. Lungs are clear. Mediastinum: Mediastinal contours appear normal. Heart size is normal. Bones and chest wall: No suspicious bony lesions. Overlying soft tissues appear unremarkable. IMPRESSION: No evidence acute pulmonary process. Reviewed by: Herminio Kwon MD on 09/16/2022 3:55 PM PST Approved by: Herminio Kwon MD on 09/16/2022 3:55 PM [facility] Station ID: [id number]
[2022-09-16] MEDS ORDERED: KETOROLAC 30 MG/ML VIAL IVP STA (16:02)
[2022-09-16 17:12] VITALS: BP 133/96
== END 2022-09-16 17:15 | disposition home or self-care (01) ==
LOC: ED 15:14
DX: R07.9 Chest pain, unspecified (principal)
CPT/HCPCS: 36415; 80053; 83690; 84484; 85025; 93005; 96374; 99283

== ENCOUNTER 2023-02-25 13:36 | Emergency (ER) | payer OTHER ==
[2023-02-25 14:05] LABS: BASOPHILS % (AUTO) 0.5 %; EOSINOPHILS # (AUTO) 0.2 10^3/uL (0.0-0.7); EOSINOPHILS % (AUTO) 2.4 %; HCT - HEMATOCRIT 47.6 % (42.0-52.0); HGB - HEMOGLOBIN 16.3 g/dL (14.0-18.0); LYMPHOCYTES % (AUTO) 30.8 %; MEAN CORPUSCULAR HEMOGLOBIN 30.2 pg (27.0-31.0); MEAN CORPUSCULAR HGB CONC 34.2 g/dL (32.0-36.0); MEAN CORPUSCULAR VOLUME 88.3 fL (80.0-94.0); MEAN PLATELET VOLUME 9.6 fL (7.4-11.4); MONOCYTES # (AUTO) 0.5 10^3/uL (0.0-1.0); MONOCYTES % (AUTO) 8.5 %; NEUTROPHILS # (AUTO) 3.7 10^3/uL (1.5-6.6); NEUTROPHILS % (AUTO) 57.6 %; PLT - PLATELET COUNT 298 10^3/uL (130-450); RED BLOOD COUNT 5.39 10^6/uL (4.70-6.10); RED CELL DISTRIBUTION WIDTH 12.7 % (12.0-15.0); WHITE BLOOD COUNT 6.4 x10^3/uL (4.8-10.8)
--- NOTE | 2023-02-25 14:07 | XRAY Report ---
PROCEDURE: Chest 1 View X-Ray INDICATIONS: Chest pain TECHNIQUE: One view of the chest was acquired. COMPARISON: 09/16/2022 FINDINGS: Surgical changes and devices: None. Lungs and pleura: No pleural effusions or pneumothorax. Lungs are clear. Mediastinum: Mediastinal contours appear normal. Heart size is normal. Bones and chest wall: No suspicious bony lesions. Overlying soft tissues appear unremarkable. IMPRESSION: No acute radiographic abnormality. Reviewed by: Fady Regalado MD on 02/25/2023 2:05 PM PDT Approved by: Fady Regalado MD on 02/25/2023 2:05 PM PDT Station ID: [id number]
--- NOTE | 2023-02-25 14:11 | ED Physician Documentation ---
PD HPI CHEST PAIN - Stated complaint Stated Complaint: NAUSEA,CHEST PX - Chief complaint Chief Complaint: Cardiac - History obtained from History obtained from: Patient - Additional information Additional information: Patient is a 37-year-old male with no significant prior medical history presenting for evaluation of mid chest discomfort that he noted upon waking up 1 hour ago. He describes it as feeling like someone is standing on his chest. The pain does not radiate. Nothing makes it better or worse. He reported an associated nausea with 1 episode of emesis which has since resolved. He does not feel short of breath. He has had other episodes of chest plain including an ER visit 5 months ago. 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 Cardiology did not feel he needed any further testing or work- up.Patient denies any travel or recent immobilization. Denies history of PE or DVT. Denies any personal history of hypertension, diabetes, hyperlipidemia or family history of early CAD.Denies smoking or drug use. Social alcohol use Review of Systems Constitutional: denies: Fever Cardiac: reports: Chest pain / pressure Respiratory: denies: Dyspnea GI: denies: Abdominal Pain Musculoskeletal: denies: Back pain Neurologic: denies: Headache PD PAST MEDICAL HISTORY - Past Medical History Cardiovascular: None Respiratory: None Neuro: None Endocrine/Autoimmune: None GI: None : Kidney stones HEENT: None Psych: None Musculoskeletal: None Derm: None - Past Surgical History Past Surgical History: No - Present Medications Home Medications: Ambulatory Orders Medication Instructions Recorded Confirmed No Known Home Medications 01/30/19 11/13/21 - Allergies Allergies/Adverse Reactions: Allergies Allergy/AdvReac Type Severity Reaction Status Date / Time No Known Drug Allergies Allergy Verified 02/25/23 13:41 - Social History Does the pt smoke?: No Smoking Status: Never smoker Does the pt drink ETOH?: Yes Does the pt have substance abuse?: No - Immunizations Immunizations are current?: Yes - POLST Patient has POLST: No PD ED PE NORMAL - General General: Alert and oriented X 3, No acute distress, Well developed/nourished - HEENT HEENT: Atraumatic - Neck Neck: Supple, no meningeal sign - Cardiac Cardiac: RRR, No murmur, Strong equal pulses, Other (Mild tenderness to chest wall with palpation, no crepitus, no rash) - Respiratory Respiratory: No respiratory distress, Clear bilaterally - Abdomen Abdomen: Normal bowel sounds, Soft, Non tender, Non distended - Derm Derm: Warm and dry - Extremities Extremities: No calf tenderness / cord - Neuro Neuro: Normal speech Results - Vitals Vitals: Vital Signs - 24 hr 02/25/23 02/25/23 02/25/23 13:41 16:06 16:38 Temperature 36.5 C 37 C Heart Rate 60 58 L 62 Respiratory 18 16 20 Rate Blood Pressure 132/83 H 119/83 H 117/85 H O2 Saturation 98 98 97 Oxygen O2 Source Room air - EKG (time done) 1340 EKG releavant findings:: EKG personally interpreted by author of this note. Relevant findings are: Rate 55, sinus bradycardia, no STEMI, no ST depressions, QTc 419 Rate: Rate (enter#) (55) Rhythm: Sinus bradycardia Intervals: No: Prolonged QT Ischemia: No: ST elevation c/w ischemia Compare to prior EKG: Unchanged from prior EKG (09/16/22) - Labs Labs: Laboratory Tests 02/25/23 02/25/23 02/25/23 13:56 13:56 13:56 WBC 6.4 RBC 5.39 Hgb 16.3 Hct 47.6 MCV 88.3 MCH 30.2 MCHC 34.2 RDW 12.7 Plt Count 298 MPV 9.6 Neut # (Auto) 3.7 Lymph # (Auto) 2.0 [place] # (Auto) 0.5 Eos # (Auto) 0.2 Baso # (Auto) 0.0 Absolute Nucleated RBC 0.00 Nucleated RBC % 0.0 Sodium 138 Potassium 3.9 Chloride 105 Carbon Dioxide 27 Anion Gap 6.0 BUN 10 Creatinine 1.0 Estimated GFR (MDRD) 84 L Glucose 107 H Calcium 9.3 Total Bilirubin 0.6 AST 24 ALT 42 Alkaline Phosphatase 89 Troponin I High Sens < 2.3 L Total Protein 7.9 Albumin 4.3 Globulin 3.6 Albumin/Globulin Ratio 1.2 Lipase 42 02/25/23 02/25/23 14:54 15:49 WBC RBC Hgb Hct MCV MCH MCHC RDW Plt Count MPV Neut # (Auto) Lymph # (Auto) [place] # (Auto) Eos # (Auto) Baso # (Auto) Absolute Nucleated RBC Nucleated RBC % Sodium Potassium Chloride Carbon Dioxide Anion Gap BUN Creatinine Estimated GFR (MDRD) Glucose Calcium Total Bilirubin AST ALT Alkaline Phosphatase Troponin I High Sens < 2.3 L < 2.3 L Total Protein Albumin Globulin Albumin/Globulin Ratio Lipase PD Medical Decision Making - ED course Complexity details: reviewed results, re-evaluated patient, d/w patient ED course: Pt is a 37 yo M with CP. VSS. EKG without acute ischemia. Labs including CBC, chemistries, troponin reviewed and without significant findings. Low risk per HEART score. PERC negative. Doubt dissection as pain has resolved and not migratory or radiating. Pt has had prior presentations for CP with benign w orkups including recent stress test 5 months ago. Pain resolved here. Repeat troponins remain negative. Pt counseled on need for close follow up with PCP as well as concerning symptoms to return for. Departure - Departure Disposition: 01 Home, Self Care Clinical Impression: Chest pain Condition: Stable Instructions: ED Chest Pain Atypical Unkn Cause Follow-Up: MARIBELL Orr [Provider Group] Comments: The exact cause for your chest pain at this time remains unclear. Your testing today does not show signs of a heart attack. I would [facility] or your flight surgeon regarding your episode of chest pain today as you may need further testing. If at anytime you have worsening symptoms such as increased pain or new symptoms please consider return to the emergency department. Forms: Activity restrictions Discharge Date/Time: 02/25/23 16:38
[2023-02-25 14:18] LABS: ALBUMIN 4.3 g/dL (3.2-5.5); ALBUMIN/GLOBULIN RATIO 1.2 (1.0-2.2); BILIRUBIN,TOTAL 0.6 mg/dL (0.2-1.0); CALCIUM 9.3 mg/dL (8.5-10.3); POTASSIUM 3.9 mmol/L (3.5-5.0); TOTAL PROTEIN 7.9 g/dL (6.7-8.2)
[2023-02-25 16:39] VITALS: BP 117/85
== END 2023-02-25 16:38 | disposition home or self-care (01) ==
LOC: ED 13:36
DX: R07.89 Other chest pain (principal)
CPT/HCPCS: 36415; 80053; 83690; 84484; 85025; 93005; 99283; 99284

== ENCOUNTER 2023-06-23 15:34 | Emergency (ER) | payer OTHER ==
[2023-06-23 15:53] VITALS: O2SAT 99
--- NOTE | 2023-06-23 17:24 | ED Physician Documentation ---
PD HPI CHEST PAIN - Stated complaint Stated Complaint: L CHEST PRESSURE/L ARM NUMB - Chief complaint Chief Complaint: Cardiac - History obtained from History obtained from: Patient - Additional information Additional information: 37-year-old male presents with left-sided chest pressure and left arm tingling. The patient states that he was in his usual state of health, took a nap this afternoon and woke up with the symptoms shortly prior to arrival. He does not have any radiating chest pain, it is not exertional, and he cannot identify any alleviating or exacerbating factors. He has no left arm weakness her but it feels somewhat tingly. He does not have any shortness of breath, no diaphoresis, no fatigue. The patient has been seen several times in the past for similar symptoms, he states that he has had a stress test and has seen a solderer and no reason for his chest symptoms have been found. His prior work-ups were all normal. He states no family history of early heart disease, he does not smoke, is not diabetic and he has no history of hypertension. Review of Systems Constitutional: reports: Reviewed and negative Nose: reports: Reviewed and negative Throat: reports: Reviewed and negative Cardiac: reports: Chest pain / pressure. denies: Palpitations, Pedal edema, Calf pain Respiratory: reports: Reviewed and negative GI: reports: Reviewed and negative : reports: Reviewed and negative Skin: reports: Reviewed and negative Musculoskeletal: reports: Reviewed and negative Neurologic: reports: Other. denies: Generalized weakness (Left arm tingling), Focal weakness, Numbness, Difficulty speaking, Near syncope, Syncope, Seizure, Confused, Altered mental status, Headache, Head injury, LOC PD PAST MEDICAL HISTORY - Past Medical History Past Medical History: No Cardiovascular: None Respiratory: None Neuro: None Endocrine/Autoimmune: None GI: None : Kidney stones HEENT: None Psych: None Musculoskeletal: None Derm: None - Past Surgical History Past Surgical History: No - Present Medications Home Medications: Ambulatory Orders Medication Instructions Recorded Confirmed No Known Home Medications 01/30/19 06/23/23 - Allergies Allergies/Adverse Reactions: Allergies Allergy/AdvReac Type Severity Reaction Status Date / Time No Known Drug Allergies Allergy Verified 06/23/23 15:40 - Social History Does the pt smoke?: No Smoking Status: Never smoker Does the pt drink ETOH?: Yes Does the pt have substance abuse?: No - Immunizations Immunizations are current?: Yes - POLST Patient has POLST: No PD ED PE NORMAL - Vitals Vital signs reviewed: Yes - General General: Alert and oriented X 3, No acute distress, Well developed/nourished - HEENT HEENT: Atraumatic, Moist mucous membranes - Neck Neck: Supple, no meningeal sign, No JVD - Cardiac Cardiac: RRR, No murmur - Respiratory Respiratory: No respiratory distress, Clear bilaterally - Abdomen Abdomen: Normal bowel sounds, Soft - Derm Derm: Normal color, Warm and dry - Extremities Extremities: No deformity, No tenderness to palpate, Normal ROM s pain - Neuro Neuro: Alert and oriented X 3, No motor deficit, No sensory deficit, Normal speech Eye Opening: Spontaneous Motor: Obeys Commands Verbal: Oriented GCS Score: 15 - Psych Psych: Normal mood, Normal affect Results - Vitals Vitals: Vital Signs - 24 hr 06/23/23 06/23/23 15:40 17:44 Temperature 36.8 C Heart Rate 64 59 L Respiratory 16 16 Rate Blood Pressure 138/84 H 127/84 H O2 Saturation 99 99 Oxygen O2 Source Room air - EKG (time done) No standard instances EKG releavant findings:: EKG personally interpreted by author of this note. Relevant findings are: Rate: Rate (enter#) (62) Rhythm: NSR Vista: Normal Intervals: Normal WI QRS: Normal Ischemia: Normal ST segments Compare to prior EKG: Unchanged from prior EKG Computer interpretation: Agree with computer - Labs Labs: Laboratory Tests 06/23/23 17:35 Troponin I High Sens 4.4 PD Medical Decision Making - ED course Complexity details: reviewed old records, reviewed results, re-evaluated patient, considered differential, d/w patient ED course: 37-year-old male who woke up with left-sided chest pressure and some left arm tingling as he came in HPI. Patient has similar symptoms in the past and has had a several cardiac work-ups including a stress test which have been negative. The symptoms today are similar to prior. Patient is well-appearing here on physical exam with no acute physical exam findings. Obtained a EKG which shows no acute ischemic changes, troponin is negative chest X-ray negative. I have low suspicion for ACS in this patient as he symptoms are very similar to prior he has had multiple negative work-ups in the past and his troponin and EKG here are negative. I do not think further testing is indicated but have advised him to follow-up with his PCP and outpatient cardiology for follow-up. Return precautions reviewed. Departure - Departure Disposition: Home, Self Care Clinical Impression: Atypical chest pain Condition: Good Instructions: ED Chest Pain NonCardiac Comments: Please follow-up with your primary doctor within the next week or so, and cardiology as needed. Your work-up today was reassuring. Forms: PCP List Discharge Date/Time: 06/23/23 18:23
[2023-06-23 17:52] VITALS: BP 127/84
--- NOTE | 2023-06-23 18:14 | XRAY Report ---
PROCEDURE: Chest 1 View X-Ray INDICATIONS: chest pain TECHNIQUE: One view of the chest was acquired. COMPARISON: None. FINDINGS: Surgical changes and devices: 11/13/2021, 09/16/2022, 02/25/2023 Lungs and pleura: An incomplete inspiratory result is noted, with low lung volumes and crowding of t he vascular markings. No focal infiltrates are seen. No large pneumothorax or large pleural effusion can be seen. Mediastinum: Mediastinal contours appear normal. Heart size is normal. Bones and chest wall: No suspicious bony lesions. Overlying soft tissues appear unremarkable. IMPRESSION: Portable chest study within normal limits. Reviewed by: Modesto Hurd MD on 06/23/2023 5:13 PM SURESH Approved by: Modesto Hurd MD on 06/23/2023 5:13 PM [id number] Station ID: [id number]
== END 2023-06-23 18:23 | disposition home or self-care (01) ==
LOC: ED 15:34
DX: R07.89 Other chest pain (principal)
CPT/HCPCS: 36415; 84484; 93005; 99283; 99284